=== PATIENT | male | born 1980 | race Caucasian/White ===

== ENCOUNTER 2018-04-20 11:05 | Emergency (ER) | payer SELFPAY ==
[~2018-04-20] VITALS: Ht 172.7 cm; Wt 90.7 kg
--- NOTE | 2018-04-20 11:13 | NUR ---
pt ambulated to bed 6
[2018-04-20 11:14] VITALS: BP 136/81
--- NOTE | 2018-04-20 11:15 | NUR ---
37y/m bib c/o 9/10 l sided constant sharp cp worsening at night. pain on respiration. denies n/v. admits 7 years meth use. no other complaints. gcs 15, a/ox4. bed down, bedrail up x 1, er md aware and notified of pt status. hx---meth use meds---none
[2018-04-20] MEDS ORDERED: KETOROLAC 30 MG/ML VIAL IVP ONE (11:35)
--- NOTE | 2018-04-20 11:47 | NUR ---
Patient being evaluated by physician at bedside.
[2018-04-20 11:56] LABS: BASOPHILS % (AUTO) 0.5 % (0.0-2.0); EOSINOPHILS # (AUTO) 1.9 K/uL (0-0.4); EOSINOPHILS % (AUTO) 24.8 % (0.0-4.0); HEMATOCRIT 42.9 % (36-52); HEMOGLOBIN 14.6 g/dL (12.0-18.0); LYMPHOCYTES # (AUTO) 1.4 K/uL (2.0-11.5); LYMPHOCYTES % (AUTO) 17.6 % (20.5-51.1); MEAN CORPUSCULAR HEMOGLOBIN 31 pg (27-31); MEAN CORPUSCULAR HGB CONC 34 g/dL (33-37); MEAN CORPUSCULAR VOLUME 92.3 fL (80-94); MONOCYTES # (AUTO) 0.5 K/uL (0.8-1.0); NEUTROPHILS # (AUTO) 3.9 K/uL (1.8-7.7); NEUTROPHILS % (AUTO) 50.1 % (42.2-75.2); PLATELET COUNT (AUTO) 302 K/uL (140-450); RED BLOOD CELL COUNT(AUTO) 4.65 MIL/uL (4.20-6.10); RED CELL DISTRIBUTION WIDTH 13.4 % (11.6-13.7); WHITE BLOOD COUNT (AUTO) 7.8 K/uL (4.8-10.8)
[2018-04-20 12:06] LABS: ANION GAP 12.5 (8-16); CARBON DIOXIDE 28.5 mmol/L (21-32)
[2018-04-20 12:12] LABS: ALBUMIN 3.9 g/dL (3.4-5.0)
--- NOTE | 2018-04-20 13:05 | NUR ---
Patient discharged with v/s stable. Written and verbal after care instructions given and explained. Patient verbalized understanding. Ambulatory with steady gait. All questions addressed prior to discharge. Advised to follow up with PMD.
[2018-04-20 13:06] VITALS: BP 130/79
== END 2018-04-20 13:05 | disposition home or self-care (01) ==
LOC: MED 11:05
DX: R07.2 Precordial pain (principal); F15.10 Other stimulant abuse, uncomplicated; F17.210 Nicotine dependence, cigarettes, uncomplicated
CPT/HCPCS: 36415; 71045; 80053; 83880; 84484; 85025; 93005; 96374; 99285; J1885; Q0092

== ENCOUNTER 2018-05-30 08:39 | Emergency (ER) | payer SELFPAY ==
[~2018-05-30] VITALS: Ht 180.3 cm; Wt 96.6 kg
--- NOTE | 2018-05-30 08:43 | NUR ---
PT AMBULATED TO ER BED 06
[2018-05-30 08:45] VITALS: BP 169/115
--- NOTE | 2018-05-30 08:54 | NUR ---
PATIENT PRESENTS TO ED WITH THE CHIEF C/O RIGHT CHEST PAIN TAHT RADIATES TO BACK. ACCORDING TO PT HE HAS SAME CHEST PAIN LAST WEEK AND WAS GONE THAT TIME W/O PAIN MEDS. THIS MORNING HE GOT SAME CHEST PAIN AROUND 6:30 AM. PT DID NOT TAKE ANY PAIN MEDICINE. PT STATES HE IS NAUSATED, VOMIT X4. NO BLOOD IN VOMIT.DENIES DIARRHEA. PT HAS HX OF METH ABUSE. TOOK METH 3 DAYS AGO PER PT. SKIN IS PINK/WARM/DRY; AAOX4 WITH EVEN AND STEADY GAIT; LUNGS CLEAR BL; HR EVEN AND REGULAR; PT DENIES ANY FEVER. NO COUGH NOTED. HAS SOB SPO2 99%IN ROOM AIR AT THIS TIME; PATIENT STATES PAIN OF 10/10 AT THIS TIME; BP NOTED 169/115. PATIENT POSITIONED FOR COMFORT; HOB ELEVATED; BEDRAILS UP X2; BED DOWN. ER MD MADE AWARE OF PT STATUS.
--- NOTE | 2018-05-30 09:12 | NUR ---
PT BEING SEEN BY DR. MCDONALD.
[2018-05-30] MEDS ORDERED: MORPHINE SULFATE 4 MG/ML SYR IVP ONE ×2 (09:20→10:20)
[2018-05-30] MEDS ORDERED: ONDANSETRON 4 MG/2 ML VIAL IVP ONE (09:20)
[2018-05-30] MEDS ORDERED: PANTOPRAZOLE 40 MG INJ VIAL IVP ONE (09:20)
[2018-05-30] MEDS ORDERED: ASPIRIN 81 MG TAB.CHEW PO ONE (09:20)
[2018-05-30 11:35] LABS: BASOPHILS % (AUTO) 0.3 % (0.0-2.0); EOSINOPHILS # (AUTO) 1.1 K/uL (0-0.4); EOSINOPHILS % (AUTO) 9.6 % (0.0-4.0); HEMATOCRIT 45.5 % (36-52); HEMOGLOBIN 15.1 g/dL (12.0-18.0); LYMPHOCYTES # (AUTO) 1.2 K/uL (2.0-11.5); LYMPHOCYTES % (AUTO) 10.5 % (20.5-51.1); MEAN CORPUSCULAR HEMOGLOBIN 31 pg (27-31); MEAN CORPUSCULAR HGB CONC 33 g/dL (33-37); MEAN CORPUSCULAR VOLUME 92.2 fL (80-94); MONOCYTES # (AUTO) 0.4 K/uL (0.8-1.0); MONOCYTES % (AUTO) 3.7 % (1.7-9.3); NEUTROPHILS # (AUTO) 8.4 K/uL (1.8-7.7); NEUTROPHILS % (AUTO) 75.9 % (42.2-75.2); PLATELET COUNT (AUTO) 352 K/uL (140-450); RED BLOOD CELL COUNT(AUTO) 4.93 MIL/uL (4.20-6.10); RED CELL DISTRIBUTION WIDTH 14.2 % (11.6-13.7); WHITE BLOOD COUNT (AUTO) 11.1 K/uL (4.8-10.8)
--- NOTE | 2018-05-30 11:39 | NUR ---
PT VERBALIZED PAIN RELIEVED. RESTING IN BED COMFORTABLY. VS WNL.
[2018-05-30 11:44] LABS: ANION GAP 14.8 (8-16); CARBON DIOXIDE 27.1 mmol/L (21-32); CREATININE 0.8 mg/dL (0.7-1.3); POTASSIUM 3.9 mmol/L (3.5-5.1)
[2018-05-30 11:49] LABS: TOTAL BILIRUBIN 0.5 mg/dL (0.0-1.0)
--- NOTE | 2018-05-30 13:06 | NUR ---
Patient discharged with v/s stable. Written and verbal after care instructions given and explained. Patient alert, oriented and verbalized understanding of instructions. Ambulatory with steady gait. All questions addressed prior to discharge. ID band removed. Patient advised to follow up with PMD. Rx of ZOFRAN AND TRAMADOL given. Patient educated on indication of medication including possible reaction and side effects. Opportunity to ask questions provided and answered.
[2018-05-30 13:07] VITALS: BP 124/61
== END 2018-05-30 13:06 | disposition home or self-care (01) ==
LOC: MED 08:39
DX: K80.20 Calculus of gallbladder without cholecystitis without obstruction (principal); F15.90 Other stimulant use, unspecified, uncomplicated; F17.210 Nicotine dependence, cigarettes, uncomplicated
CPT/HCPCS: 36415; 71045; 76705; 80053; 83690; 84484; 85025; 93005; 96374; 96375; 96376; 99284; C9113; J2270; J2405; Q0092

== ENCOUNTER 2018-08-06 15:58 | Inpatient (IN) | payer SELFPAY ==
[~2018-08-06] VITALS: Ht 172.7 cm; Wt 92.1 kg
[2018-08-06 16:00] VITALS: BP 138/98
--- NOTE | 2018-08-06 16:19 | NUR ---
PT AMBULATED TO BED 03
--- NOTE | 2018-08-06 16:30 | NUR ---
38 YO M BIB SON C/O RUQ PAIN X 1 MONTH. PT SEEN HERE 1 MONTH AGO,SEEN AT [facility] 4 DAYS AGO DX GALL STONE. PAIN 10/10 AT THIS TIME. USES METH, LAST USED YESTERDAY. LAST MEAL WAS [facility] 2 HOURS AGO. DENIES N/V/D/FEVER. AAOX4. HX METH USE RX DENIES
[2018-08-06] MEDS ORDERED: NACL 0.9% 1,000 ML IV SCH (17:17)
[2018-08-06] MEDS ORDERED: NACL 0.9% 1,000 ML IV ONE (17:17)
[2018-08-06] MEDS ORDERED: GLYCOPYRROLATE 0.2 MG/ML VIAL IV ONE (17:20)
[2018-08-06] MEDS ORDERED: KETOROLAC 30 MG/ML VIAL IVP ONE (17:20)
[2018-08-06] MEDS ORDERED: MORPHINE SULFATE 4 MG/ML SYR IVP ONE (17:20)
[2018-08-06] MEDS ORDERED: PROMETHAZINE 25 MG/ML VIAL IM ONE (17:20)
[2018-08-06 18:14] LABS: BASOPHILS # (AUTO) 0.1 K/uL (0.00-0.22); BASOPHILS % (AUTO) 0.5 % (0.0-2.0); EOSINOPHILS # (AUTO) 1.6 K/uL (0-0.4); EOSINOPHILS % (AUTO) 12.8 % (0.0-4.0); HEMATOCRIT 41.2 % (36-52); HEMOGLOBIN 13.6 g/dL (12.0-18.0); LYMPHOCYTES % (AUTO) 15.5 % (20.5-51.1); MEAN CORPUSCULAR HEMOGLOBIN 31 pg (27-31); MEAN CORPUSCULAR HGB CONC 33 g/dL (33-37); MEAN CORPUSCULAR VOLUME 92.4 fL (80-94); MONOCYTES % (AUTO) 7.9 % (1.7-9.3); NEUTROPHILS % (AUTO) 63.3 % (42.2-75.2); PLATELET COUNT (AUTO) 409 K/uL (140-450); RED BLOOD CELL COUNT(AUTO) 4.46 MIL/uL (4.20-6.10); RED CELL DISTRIBUTION WIDTH 13.1 % (11.6-13.7); WHITE BLOOD COUNT (AUTO) 12.7 K/uL (4.8-10.8)
[2018-08-06 18:18] LABS: ALBUMIN 3.8 g/dL (3.4-5.0); AMYLASE 45 U/L (25-115); ANION GAP 9.5 (8-16); ASPARTATE AMINOTRANSFERASE 14 U/L (15-37); CARBON DIOXIDE 30.4 mmol/L (21-32); CHLORIDE 102 mmol/L (98-107); CREATININE 0.9 mg/dL (0.7-1.3); GAMMA GLUTAMYL TRANSFERASE 12 U/L (7-51); GFR ARICAN-AMERICAN 121 mL/min (>90); GLUCOSE 101 mg/dL (74-106); LIPASE 255 U/L (73-393); POTASSIUM 3.9 mmol/L (3.5-5.1); SODIUM SERUM 138 mmol/L (136-145); TOTAL BILIRUBIN 0.3 mg/dL (0.0-1.0); UREA NITROGEN, BLOOD 11 mg/dL (7-18)
[2018-08-06 18:35] LABS: PROTHROMBIN TIME 9.5 secs (10.8-13.4)
--- NOTE | 2018-08-06 18:48 | NUR ---
US AT BEDSIDE.
--- NOTE | 2018-08-06 19:07 | NUR ---
Pt report given to LULU BARILLAS. Transfer of care at this time.
--- NOTE | 2018-08-06 19:08 | NUR ---
ASSUMED CARE OF PT FROM ERAN CRONIN
[2018-08-06] MEDS ORDERED: PROPOFOL 200 MG/20 ML VIAL IV ONE (19:49)
[2018-08-06] MEDS ORDERED: ONDANSETRON 4 MG/2 ML VIAL ONE (19:49)
[2018-08-06] MEDS ORDERED: SUCCINYLCHOLINE CHLORIDE 200 MG/10 ML VIAL IVP ONE (19:49)
[2018-08-06] MEDS ORDERED: DEXAMETHASONE 4 MG/ML VIAL ONE (19:49)
[2018-08-06] MEDS ORDERED: ROCURONIUM 50 MG/5 ML VIAL IV ONE (19:49)
[2018-08-06] MEDS ORDERED: DESFLURANE 240 ML BTL INH ONE (19:49)
[2018-08-06] MEDS ORDERED: metroNIDAZOLE 500 MG/NS PREMIX 100 ML IV ONE (21:10)
[2018-08-06 21:19] LABS: APPEARANCE,URINE CLEAR (CLEAR); BARBITURATE, URINE NEG. ng/ml (NEG <=200); BENZODIAZEPINE, URINE NEG. ng/mL (NEG <=200); BILIRUBIN,URINE NEGATIVE (NEGATIVE); BLOOD, URINE NEGATIVE (NEGATIVE); CANNABINOID, URINE NEG. ng/mL (NEG <=50); COCAINE, URINE NEG. ng/mL (NEG <=300); COLOR,URINE YELLOW (YELLOW); LEUKOCYTE ESTERASE ,URINE NEGATIVE (NEGATIVE); NITRITE, URINE NEGATIVE (NEGATIVE); OPIATE, URINE NEG. ng/mL (NEG <=2000); PH,URINE 6.5 (5.0-9.0); PHENCYCLIDINE SCREEN,URINE NEG. ng/mL (NEG <=25); UGLUCOSE NEGATIVE (NEGATIVE)
[2018-08-06] MEDS ORDERED: cefTRIAXone 1,000 MG VIAL ONE (21:20)
[2018-08-06] MEDS ORDERED: ZOLPIDEM 5 MG TAB PO PRN (21:30)
[2018-08-06] MEDS ORDERED: HYDROcodone/APAP 7.5/325 MG 1 TAB PO PRN (21:30)
[2018-08-06] MEDS ORDERED: ONDANSETRON 4 MG/2 ML VIAL IVP PRN (21:30)
[2018-08-06] MEDS ORDERED: ACETAMINOPHEN 325 MG TAB PO PRN (21:30)
--- NOTE | 2018-08-06 21:55 | NUR ---
EKG PERFORMED AT TRIAGE ROOM WITH RN PRESENT
--- NOTE | 2018-08-06 21:59 | NUR ---
Patient will be admitted to care of DR REYES. Admited to MED/SURG. Will go to room 119-A. Belongings list completed. Report to MAKROS EVANS RN.
--- NOTE | 2018-08-06 22:03 | NUR ---
PATIENT ARRIVED FROM ER VIA [facility], ACCOMPANIED BY BANQUET SET UP PERSON. PATIENT ABLE TO AMBULATE FROM [facility] TO BED. PATIENT CHIEF COMPLAINT IS ABDOMINAL PAIN. DX - ACUTE CHOLECYSTITIS. PATIENT A/Ox4, ABLE TO VERBALIZE NEEDS. KINYARWANDA SPEAKING ONLY. SON AT BEDSIDE, ABLE TO TRANSLATE. INTRODUCED PATIENT TO ROOM, UPDATED BOARD. NO SOB OR DISTRESS NOTED. IV SITE ON LEFT ANTECUBITAL, 20 GAUGE, INTACT AND PATENT. SKIN INTACT. NAY IN THE LOWEST POSITION, CALL LIGHT WITHIN REACH. INITIAL ASSESSMENT DONE. WILL CONTINUE TO MONITOR. Addendum: 08/07/18 at 0110 by Florencio Lewis RN DX - SIDE PAIN
[2018-08-06 22:10] LABS: FREE T4 (FREE THYROXINE) 0.87 ng/dL (0.76-1.46); MAGNESIUM 2.2 mg/dL (1.8-2.4); PHOSPHORUS 3.9 mg/dL (2.5-4.9); THYROID STIMULATING HORMONE 0.8 uIU/mL (0.34-3.74)
[2018-08-07] VITALS: BP 134/91
[2018-08-07] MEDS: DEXT 5% / NACL 0.9% 500 ML IV SCH ×2 (00:01→02:30)
--- NOTE | 2018-08-07 00:15 | NUR ---
ROUNDS DONE, VITALS CHECKED. NO DISTRESS NOTED.
--- NOTE | 2018-08-07 04:05 | NUR ---
PATIENT ASLEEP, EYES CLOSED, VISIBLE CHEST RISE AND FALL NOTED.
[2018-08-07] MEDS: metroNIDAZOLE 500 MG/NS PREMIX 100 ML IV SCH ×2 (05:20→12:23)
[2018-08-07] MEDS: DEXT 5% /NACL 0.9% 1,000 ML IV SCH ×2 (06:10→15:50)
[2018-08-07 07:15] LABS: BASOPHILS # (AUTO) 0.1 K/uL (0.00-0.22); BASOPHILS % (AUTO) 0.5 % (0.0-2.0); EOSINOPHILS # (AUTO) 2.1 K/uL (0-0.4); EOSINOPHILS % (AUTO) 18.2 % (0.0-4.0); HEMATOCRIT 38.2 % (36-52); HEMOGLOBIN 12.7 g/dL (12.0-18.0); LYMPHOCYTES # (AUTO) 1.3 K/uL (2.0-11.5); LYMPHOCYTES % (AUTO) 11.2 % (20.5-51.1); MEAN CORPUSCULAR HEMOGLOBIN 31 pg (27-31); MEAN CORPUSCULAR HGB CONC 33 g/dL (33-37); MEAN CORPUSCULAR VOLUME 91.9 fL (80-94); MONOCYTES # (AUTO) 1.1 K/uL (0.8-1.0); MONOCYTES % (AUTO) 9.4 % (1.7-9.3); NEUTROPHILS % (AUTO) 60.7 % (42.2-75.2); PLATELET COUNT (AUTO) 352 K/uL (140-450); RED BLOOD CELL COUNT(AUTO) 4.16 MIL/uL (4.20-6.10); WHITE BLOOD COUNT (AUTO) 11.6 K/uL (4.8-10.8)
--- NOTE | 2018-08-07 07:20 | NUR ---
ENDORSED PATIENT TO AM SHIFT RN. PATIENT IN STABLE CONDITION.
--- NOTE | 2018-08-07 07:25 | NUR ---
RECEIVED PT FROM UNBUNDLER NURSE, PT IS AWAKE AND LYING ON THE BED WITH SIDE RAILS UP AND CALL LIGHT WITHIN REACH, PT HAS AN IV LINE ON THE LEFT AC G. 20 WITH D51/2 NS INFUSING AT 100ML/HR, INTACT, PT VERBALIZED PAIN ON THE RT ABDOMINAL SIDE, WILL MEDICATE, NO OTHER UNTOWARD SIGN NOTED. WILL CONTINUE TO MONITOR PT.
[2018-08-07 07:27] LABS: ANION GAP 5.5 (8-16); CARBON DIOXIDE 29.4 mmol/L (21-32); CREATININE 0.7 mg/dL (0.7-1.3); POTASSIUM 3.9 mmol/L (3.5-5.1)
[2018-08-07 07:33] LABS: MAGNESIUM 1.9 mg/dL (1.8-2.4); PHOSPHORUS 3.9 mg/dL (2.5-4.9)
[2018-08-07 08:00] VITALS: BP 136/94
[2018-08-07] MEDS ORDERED: MORPHINE SULFATE 2 MG/ML SYR IVP PRN (08:10)
--- NOTE | 2018-08-07 08:10 | NUR ---
DR. REYES AND THE RESIDENT MADE THEIR ROUNDS TO THE PT'S ROOM AND SPOKE TO PT.
--- NOTE | 2018-08-07 08:27 | NUR ---
PATIENT HAS BEEN SCREENED AND CATEGORIZED HIGH NUTRITION RISK. PATIENT WILL BE SEEN WITHIN 1-2 DAYS OF ADMISSION. 08/07/18-08/08/[address]
[2018-08-07] MEDS: DOCUSATE SODIUM 100 MG GELCAP PO SCH ×2 (08:58→21:00)
[2018-08-07] MEDS: LACTOBACILLUS RHAMNOSUS GG 1 EACH CAP PO SCH (08:58)
[2018-08-07] MEDS: PANTOPRAZOLE 40 MG INJ VIAL IVP SCH (08:59)
[2018-08-07] MEDS ORDERED: LACTOBACILLUS RHAMNOSUS GG 1 EACH CAP PO SCH (09:00)
--- NOTE | 2018-08-07 09:00 | NUR ---
PT IS AWAKE AND VITAL SIGNS TAKEN AND IS WITHIN NORMAL LIMIT, ORAL MEDICATIONS GIVEN AND PT TOLERATED IT. NO SIGN OF DISTRESS NOTED AND WILL MONITOR PT.
--- NOTE | 2018-08-07 12:23 | NUR ---
PT IS AWKE AND LYING ON THE BED, FLAGYL WAS GIVEN VIA IVPB AND PT TOLERATED IT. NO SIGN OF DISTRESS NOTED AND WILL MONITOR PT.
--- NOTE | 2018-08-07 15:20 | NUR ---
DR. JACOME CAME TO THE PT'S ROOM AND SPOKE TO PT AND INFORMED PT THAT SURGERY WILL BE DONE LATER TODAY. PT ACKNOWLEDGED AND VERBALIZED UNDERSTANDING WITH SON ON THE BEDSIDE.
[2018-08-07] MEDS: MORPHINE SULFATE 2 MG/ML SYR IVP PRN ×2 (15:29→18:44)
[2018-08-07 16:00] VITALS: BP 139/87
--- NOTE | 2018-08-07 18:48 | NUR ---
PT IS AWAKE AND VERBALIZED A PAIN RATE OF 10/10, MORPHINE WAS GIVEN VIA IV PUSH, WILL MONITOR PT.
--- NOTE | 2018-08-07 18:59 | NUR ---
PT WAS INFORMED OF THE SURGERY WITH THE INTERPRETATION OF EMOTIONAL SUPPORT TEACHER, BERNICE #[id number], TO BE DONE BY DR. JACOME, CONSENT SIGNED AND ATTACHED TO CHART. PT VERBALIZED UNDERSTANDING OF THE SURGERY.
--- NOTE | 2018-08-07 19:20 | NUR ---
ENDORSED PT TO AIRPORT SECURITY SCREENER NURSEVIOLA FOR CONTINUITY OF CARE. PT TIS STABLE AT THIS TIME WITH SON ON THE BEDSIDE.
--- NOTE | 2018-08-07 19:21 | NUR ---
RECEIVED ENDORSEMENT FROM AM SHIFT RN. PATIENT A/Ox4, ABLE TO VERBALIZE NEEDS. [place] SPEAKING ONLY. SON AT BEDSIDE, ABLE TO TRANSLATE. INTRODUCED PATIENT TO ROOM, UPDATED BOARD. NO SOB OR DISTRESS NOTED. IV SITE ON LEFT ANTECUBITAL, 20 GAUGE, INTACT AND PATENT. SKIN INTACT. NAY IN THE LOWEST POSITION, CALL LIGHT WITHIN REACH. INITIAL ASSESSMENT DONE. WILL CONTINUE TO MONITOR.
--- NOTE | 2018-08-07 19:30 | NUR ---
PATIENT WAS TRANSFERRED TO OR AT THIS TIME. PATIENT IN STABLE CONDITION.
[2018-08-07] MEDS ORDERED: BUPIVACAINE-MPF/EPI 0.5% 30 ML VIAL INJ ONE (19:48)
[2018-08-07] MEDS ORDERED: ceFAZolin 1,000 MG VIAL ONE (19:49)
[2018-08-07] MEDS ORDERED: MIDAZOLAM 2 MG/2 ML VIAL ONE (20:04)
[2018-08-07] MEDS ORDERED: fentaNYL 0.05 MG/ML VIAL ONE (20:04)
[2018-08-07] MEDS ORDERED: ONDANSETRON 4 MG/2 ML VIAL IVP PRN (20:25)
[2018-08-07] MEDS ORDERED: HYDROmorphone 1 MG/ML AMP IVP PRN (20:25)
[2018-08-07] MEDS ORDERED: LABETALOL 100 MG/20 ML VIAL IV PRN (22:15)
[2018-08-07] MEDS ORDERED: LABETALOL 100 MG/20 ML VIAL ONE (22:20)
[2018-08-07] MEDS ORDERED: HYDROmorphone PFS 2 MG/ML SYR ONE (22:49)
--- NOTE | 2018-08-07 23:03 | NUR ---
PATIENT TRANSFERRED TO UNIT FROM OR. ACCOMPANIED BY TWO CLOUD SOLUTIONS ARCHITECT's. PATIENT'S VITALS UPON ARRIVAL INTO THE UNIT ARE FOLLOWS: BP 136/90, RR 16, HR 70, TEMP 97.8, O2Sat 99% ON ROOM AIR. RECEIVED ENDORSEMENT FROM CLOUD SOLUTIONS ARCHITECT. PATIENT NOTED WITH AYAAN DRAIN WITH LESS THAN 5mL OF SANGUINEOUS DRAINAGE. WILL CONTINUE TO MONITOR.
[2018-08-08] VITALS: BP 136/90
--- NOTE | 2018-08-08 00:15 | NUR ---
VITALS TAKEN, PATIENT ASLEEP, VISIBLE CHEST RISE AND FALL NOTED.
[2018-08-08] MEDS ORDERED: INFLUENZA VIRUS VACCINE QUAD 0.5 ML SYR IMVAC PRN (00:20)
[2018-08-08] MEDS: metroNIDAZOLE 500 MG/NS PREMIX 100 ML IV SCH ×2 (00:33→05:02)
[2018-08-08] MEDS: DEXT 5% /NACL 0.9% 1,000 ML IV SCH (01:28)
--- NOTE | 2018-08-08 03:02 | NUR ---
PATIENT ASLEEP, VISIBLE CHEST RISE AND FALL NOTED.
--- NOTE | 2018-08-08 05:01 | NUR ---
FREQUENT CHECKS MADE. NO SOB OR DISTRESS NOTED.
[2018-08-08 06:21] LABS: BASOPHILS % (AUTO) 0.1 % (0.0-2.0); EOSINOPHILS % (AUTO) 0.2 % (0.0-4.0); HEMATOCRIT 39.8 % (36-52); HEMOGLOBIN 13.5 g/dL (12.0-18.0); LYMPHOCYTES # (AUTO) 0.6 K/uL (2.0-11.5); LYMPHOCYTES % (AUTO) 6.5 % (20.5-51.1); MEAN CORPUSCULAR HEMOGLOBIN 31 pg (27-31); MEAN CORPUSCULAR HGB CONC 34 g/dL (33-37); MEAN CORPUSCULAR VOLUME 92.8 fL (80-94); MONOCYTES # (AUTO) 0.6 K/uL (0.8-1.0); MONOCYTES % (AUTO) 6.4 % (1.7-9.3); NEUTROPHILS # (AUTO) 7.8 K/uL (1.8-7.7); NEUTROPHILS % (AUTO) 86.8 % (42.2-75.2); PLATELET COUNT (AUTO) 366 K/uL (140-450); RED BLOOD CELL COUNT(AUTO) 4.29 MIL/uL (4.20-6.10); RED CELL DISTRIBUTION WIDTH 13.1 % (11.6-13.7)
[2018-08-08 06:33] LABS: ALBUMIN 2.9 g/dL (3.4-5.0); ANION GAP 11.3 (8-16); CARBON DIOXIDE 30.3 mmol/L (21-32); CREATININE 0.8 mg/dL (0.7-1.3); POTASSIUM 4.6 mmol/L (3.5-5.1); TOTAL BILIRUBIN 0.5 mg/dL (0.0-1.0)
[2018-08-08 06:39] LABS: PHOSPHORUS 4.8 mg/dL (2.5-4.9)
--- NOTE | 2018-08-08 07:25 | NUR ---
ENDORSED PATIENT TO AM SHIFT RN. PATIENT STABLE.
--- NOTE | 2018-08-08 07:26 | NUR ---
RECEIVED BEDSIDE REPORT FROM SUPERVISOR SHRIMP POND NURSE. PATIENT IS AWAKE, ALERT AND ORIENTEDX4. NO SIGNS OF DISTRESS ON RA. PATIENT HAS SURGICAL WOUNDS, DRESSINGS ARE CLEAN, DRY AND INTACT. AYAAN DRAIN ON R ABD, DRAINING WELL, DRESSING IS CLEAN, DRY AND INTACT. PATIENT HAS CARSON, REMOVED. PATIENT IS CONTINENT. AMBULATORY. L AC 20G INFUSING D5 1/2 NS AT 100. CLEAN, DRY AND INTACT. BED IN LOW POSITION. CALL LIGHT WITHIN REACH. WILL CONTINUE TO MONITOR THE PATIENT.
[2018-08-08 08:00] VITALS: BP 135/86
[2018-08-08] MEDS: DOCUSATE SODIUM 100 MG GELCAP PO SCH (09:16)
[2018-08-08] MEDS: LACTOBACILLUS RHAMNOSUS GG 1 EACH CAP PO SCH (09:16)
[2018-08-08] MEDS: PANTOPRAZOLE 40 MG INJ VIAL IVP SCH (09:16)
[2018-08-08] MEDS ORDERED: NORC10 PO (09:17)
[2018-08-08] MEDS ORDERED: DOCU-299 PO (09:17)
[2018-08-08] MEDS ORDERED: LACT10CA PO (09:17)
[2018-08-08] MEDS ORDERED: AMOX-999 PO (09:17)
[2018-08-08] MEDS ORDERED: IBUP200C97 PO (09:17)
--- NOTE | 2018-08-08 09:26 | NUR ---
ADMINISTERED MEDS. PATIENT TOLERATED WELL. WILL CONTINUE TO MONITOR THE PATIENT.
--- NOTE | 2018-08-08 11:00 | NUR ---
PATIENT IS SLEEPING. NO SIGNS OF DISTRESS. WILL CONTINUE TO MONITOR THE PATIENT
--- NOTE | 2018-08-08 11:08 | NUR ---
PT SLEEPING IS AT BEDSIDE WILL RETRY TO GET PT TO DO IS
--- NOTE | 2018-08-08 12:30 | NUR ---
EDUCATED PATIENT ON DISEASE PROCESS, EDUCATED ON WOUND CARE, FOLLOW UP W DR JACOME FOR WOUNDS AND AYAAN DRAIN, EDUCATED ON ABN S/SX OF WOUND AND HEALTH, WHEN TO GO TO THE ER, EDUCATED ON FOLLOW UP W SESAR FOR WOUND CHECK. EDUCATED ON MEDS AND TO TAKE PRESCRIBED. GAVE INFLUENZA VACCINE. PNA NOT A CANDIDATE. PATIENT VERBALIZED UNDERSTANDING. PATIENT ID BANDS REMOVED. IV REMOVED, TIP IS INTACT. PATIENT LEFT IN STABLE CONDITION W SON
== END 2018-08-08 12:30 | disposition home or self-care (01) | DRG 853 ==
LOC: MED 15:58 → MTU 21:38
PROVIDERS: ADMIT General Practice; ATTEND General Practice
PROC: 0D9W40Z Drainage of Peritoneum with Drainage Device, Percutaneous Endoscopic Approach (ICD-10-PCS; 2018-08-07)
PROC: 0FT44ZZ Resection of Gallbladder, Percutaneous Endoscopic Approach (ICD-10-PCS; principal; 2018-08-07 18:40)
PROC: 3E02340 Introduction of Influenza Vaccine into Muscle, Percutaneous Approach (ICD-10-PCS; 2018-08-08)
DX: A41.9 Sepsis, unspecified organism (principal); K65.3 Choleperitonitis; K80.00 Calculus of gallbladder with acute cholecystitis without obstruction; E44.0 Moderate protein-calorie malnutrition; F17.210 Nicotine dependence, cigarettes, uncomplicated; E66.9 Obesity, unspecified; F15.10 Other stimulant abuse, uncomplicated; Z89.021 Acquired absence of right finger(s); Z68.30 Body mass index [BMI] 30.0-30.9, adult; Z23 Encounter for immunization
CPT/HCPCS: 36415; 71045; 76705; 80048; 80053; 80305; 81003; 82150; 82374; 82977; 83036; 83605; 83690; 83735; 83880; 84100; 84439; 84443; 84484; 85025; 85610; 85730; 86886; 86900; 86901; 87040; 87081; 87086; 88304; 96361; 96365; 96368; 96372; 96375; 99285; C9113; G0482; J0330; J0690; J0696; J1100; J1170; J1644; J1885; J2250; J2270; J2405; J2550; J2704; J3010; J3490; J7030; J7042; J7060; Q0092

== ENCOUNTER 2020-03-04 17:59 | Emergency (ER) | payer SELFPAY ==
[~2020-03-04] VITALS: Ht 170.2 cm; Wt 71.7 kg
[~2020-03-04 17:59] MED LIST: AMOX-999 PO; DOCU-299 PO; IBUP200C97 PO; LACT10CA PO; NORC10 PO
[2020-03-04 18:00] VITALS: BP 149/97
--- NOTE | 2020-03-04 18:10 | NUR ---
PT WAS WHEELCHAIR ASSISTED TO BED 9 C/O LT ANKLE PAIN WITH +2 EDEMA, ERYTHEMA, AND REDUCED ROM WITHOUT DEFORMITY S/P FALL ON TUESDAY. + 2 DORSAL PULSE WITH INTACT SKIN. PT DENIES HAD HX OF FX ON THE SAME ANKLE. DENIES N/V/D; SKIN IS PINK/WARM/DRY; AAOX4; PT DENIES ANY FEVER, CP, SOB, OR COUGH AT THIS TIME; PATIENT STATES PAIN OF 10/10 AT THIS TIME; VSS; PATIENT POSITIONED FOR COMFORT; HOB ELEVATED; BEDRAILS UP X1; BED DOWN. ER MD MADE AWARE OF PT STATUS.
--- NOTE | 2020-03-04 18:17 | NUR ---
XRAY IS AT BEDSIDE.
[2020-03-04] MEDS: HYDROcodone/APAP 5/325 MG 1 TAB TAB PO ONE ×2 (19:34→19:39)
[2020-03-04] MEDS ORDERED: KETOROLAC 30 MG/ML VIAL IM ONE (19:45)
--- NOTE | 2020-03-04 19:47 | NUR ---
pts left foot was placed in a splint. pts pmsc wnl. pt was also given crutches. pts showed good use of crutches
[2020-03-04 20:10] VITALS: BP 130/83
--- NOTE | 2020-03-04 20:10 | NUR ---
Patient discharged with v/s stable. Written and verbal after care instructions given and explained. Patient alert, oriented and verbalized understanding of instructions. Ambulatory with steady gait. All questions addressed prior to discharge. ID band removed. Patient advised to follow up with PMD. Rx of Arnold given. Patient educated on indication of medication including possible reaction and side effects. Opportunity to ask questions provided and answered. imaging CD was given to pt.
== END 2020-03-04 20:10 | disposition home or self-care (01) ==
LOC: MED 17:59
DX: S92.009A Unspecified fracture of unspecified calcaneus, initial encounter for closed fracture (principal); Z79.899 Other long term (current) drug therapy; X58.XXXA Exposure to other specified factors, initial encounter; Y93.39 Activity, other involving climbing, rappelling and jumping off; Y92.89 Other specified places as the place of occurrence of the external cause; Y99.8 Other external cause status
CPT/HCPCS: 29515; 73610; 73630; 96372; 99284; J1885